=== PATIENT | female | born 1945 | race Caucasian/White ===

== ENCOUNTER 2017-10-11 14:58 | Emergency (ER) | payer MEDICARE ==
[2017-10-11] MEDS ORDERED: ONDANSETRON 4 MG/2 ML VIAL IVP STA (15:17)
[2017-10-11] MEDS ORDERED: SODIUM CHLORIDE 0.9% 1,000 ML IV STA (15:17)
[2017-10-11] MEDS ORDERED: DIPHENOX-ATROP 2.5-0.025 MG 1 EACH TAB PO STA (15:17)
--- NOTE | 2017-10-11 15:34 | ED ---
General Adult HPI - General Chief complaint: Nausea/Vomiting/Diarrhea Stated complaint: Weakness Time Seen by Provider: 10/11/17 15:00 Source: patient, RN notes reviewed Mode of arrival: ambulatory Limitations: no limitations - History of Present Illness Initial comments: This is a 71-year-old female who presents emergency Department complaining of nausea vomiting and diarrhea for 3-4 days. Patient states she's having no pain and she thought her diarrhea was going to stop yesterday but it started up again this morning. Patient states she hasn't been eating or drinking because she's been so sick. Patient denies any fever or chills. Patient denies any chest pain palpitations difficulty breathing shortness of breath. Patient denies any abdominal pain or cramping. Patient denies any dysuria hematuria urinary frequency. Patient denies any recent falls or injuries. Patient denies headache patient denies numbness weakness. Patient does complain of generalized weakness but she believes that's secondary to not eating or drinking - Related Data Home Medications Medication Instructions Recorded Confirmed Levothyroxine Sodium [Synthroid] 75 mcg PO DAILY 10/11/17 10/11/17 Lisinopril [Zestril] 10 mg PO DAILY 10/11/17 10/11/17 Simvastatin [Zocor] 40 mg PO HS 10/11/17 10/11/17 Previous Rx's Medication Instructions Recorded Nitrofurantoin Monohyd/M-Cryst 100 mg PO Q12HR #14 cap 10/11/17 [Macrobid] Allergies Allergy/AdvReac Type Severity Reaction Status Date / Time No Known Allergies Allergy Verified 10/11/17 15:35 Review of Systems ROS Statement: Those systems with pertinent positive or pertinent negative responses have been documented in the HPI. ROS Other: All systems not noted in ROS Statement are negative. Past Medical History Past Medical History: Hyperlipidemia, Hypertension, Thyroid Disorder History of Any Multi-Drug Resistant Organisms: None Reported Past Surgical History: Hysterectomy Past Psychological History: No Psychological Hx Reported Smoking Status: Former smoker Past Alcohol Use History: None Reported Past Drug Use History: None Reported General Exam - General Exam Comments Initial Comments: GENERAL: Patient is well-developed and well-nourished. Patient is nontoxic and well- hydrated and is in mild distress. ENT: Neck is soft and supple. No significant lymphadenopathy is noted. Oropharynx is clear. Dry mucous membranes. Neck has full range of motion without eliciting any pain. EYES: The sclera were anicteric and conjunctiva were pink and moist. Extraocular movements were intact and pupils were equal round and reactive to light. Eyelids were unremarkable. PULMONARY: Unlabored respirations. Good breath sounds bilaterally. No audible rales rhonchi or wheezing was noted. CARDIOVASCULAR: There is a regular rate and rhythm without any murmurs gallops or rubs. ABDOMEN: Soft and nontender with normal bowel sounds. No palpable organomegaly was noted. There is no palpable pulsatile mass. SKIN: Skin is clear with no lesions or rashes and otherwise unremarkable. NEUROLOGIC: Patient is alert and oriented x3. Cranial nerves II through XII are grossly intact. Motor and sensory are also intact. Normal speech, volume and content. Symmetrical smile. MUSCULOSKELETAL: Normal extremities with adequate strength and full range of motion. LYMPHATICS: No significant lymphadenopathy is noted PSYCHIATRIC: Normal psychiatric evaluation. Normal interpersonal interactions appears functionally intact in deals appropriately with others. No signs of depression. No signs of anxiety. Limitations: no limitations Course Vital Signs 10/11/17 15:03 Temperature 98.4 F Pulse Rate 90 Respiratory 20 Rate Blood Pressure 139/73 O2 Sat by Pulse 98 Oximetry Medical Decision Making - Medical Decision Making I will back into reevaluate the patient she had no more vomiting while in the emergency department she stated she was feeling better and she was feeling good enough to go home. Patient also urinary tract infection I gave the patient [facility] emergency department. I will discharge the patient with some Zofran and Lomotil and an antibiotic for the urinary tract infection - Lab Data Result diagrams: 10/11/17 15:32 10/11/17 15:32 Lab Results 10/11/17 10/11/17 10/11/17 Range/Units 15:32 15:32 15:32 WBC 5.7 (3.8-10.6) k/uL RBC 5.12 (3.80-5.40) m/uL Hgb 15.4 (11.4-16.0) gm/dL Hct 46.3 H (34.0-46.0) % MCV 90.4 (80.0-100.0) fL MCH 30.1 (25.0-35.0) pg MCHC 33.3 (31.0-37.0) g/dL RDW 13.2 (11.5-15.5) % Plt Count 198 (150-450) k/uL Neutrophils % 73 % Lymphocytes % 13 % Monocytes % 9 % Eosinophils % 0 % Basophils % 1 % Neutrophils # 4.2 (1.3-7.7) k/uL Lymphocytes # 0.7 L (1.0-4.8) k/uL Monocytes # 0.5 (0-1.0) k/uL Eosinophils # 0.0 (0-0.7) k/uL Basophils # 0.1 (0-0.2) k/uL Sodium 140 (137-145) mmol/L Potassium 4.4 (3.5-5.1) mmol/L Chloride 102 (98-107) mmol/L Carbon Dioxide 22 (22-30) mmol/L Anion Gap 16 mmol/L BUN 33 H (7-17) mg/dL Creatinine 1.00 (0.52-1.04) mg/dL Est GFR (MDRD) Af Amer >60 (>60 ml/min/1.73 sqM) Est GFR (MDRD) Non-Af 55 (>60 ml/min/1.73 sqM) Glucose 106 H (74-99) mg/dL Calcium 9.4 (8.4-10.2) mg/dL Total Bilirubin 0.5 (0.2-1.3) mg/dL AST 53 H (14-36) U/L ALT 45 (9-52) U/L Alkaline Phosphatase 93 (38-126) U/L Total Protein 7.5 (6.3-8.2) g/dL Albumin 4.4 (3.5-5.0) g/dL Urine Color Yellow Urine Appearance Turbid H (Clear) Urine pH 5.5 (5.0-8.0) Ur Specific Call 1.024 (1.001-1.035) Urine Protein 1+ H (Negative) Urine Glucose (UA) Negative (Negative) Urine Ketones 1+ H (Negative) Urine Blood Negative (Negative) Urine Nitrite Negative (Negative) Urine Bilirubin Negative (Negative) Urine Urobilinogen <2.0 (<2.0) mg/dL Ur Leukocyte Esterase Moderate H (Negative) Urine WBC 32 H (0-5) /hpf Ur Squamous Epith Cells 3 (0-4) /hpf Amorphous Sediment Rare H (None) /hpf Urine Bacteria Many H (None) /hpf Urine Mucus Many H (None) /hpf Disposition Clinical Impression: Gastroenteritis, Urinary tract infection Disposition: HOME SELF-CARE Condition: Good Instructions: Gastroenteritis (ED) Prescriptions: Nitrofurantoin Monohyd/M-Cryst [Macrobid] 100 mg PO Q12HR #14 cap Referrals: Ruben Maddox MD [Primary Care Provider] - 1-2 days Time of Disposition: 16:41
[2017-10-11 15:48] LABS: Amorphous Sediment,Urine Rare /hpf; Appearance,Urine Turbid (Clear); Bacteria,Urine Many /hpf; Bilirubin,Urine Negative (Negative); Blood,Urine Negative (Negative); Color,Urine Yellow; Glucose,Urine (UA) Negative (Negative); Ketones,Urine 1+ (Negative); Leukocyte Esterase,Urine Moderate (Negative); Mucus,Urine Many /hpf; PH, Urine 5.5 (5.0-8.0); Protein,Urine 1+ (Negative); Specific Gravity,Urine 1.024 (1.001-1.035); Squamous Epithelial Cell,Urine 3 /hpf (0-4); Urobilinogen,Urine <2.0 mg/dL (<2.0); WBC,Urine 32 /hpf (0-5)
[2017-10-11 15:53] LABS: Basophils # (A) 0.1 k/uL (0-0.2); Basophils % (A) 1 %; Eosinophils % (A) 0 %; HCT 46.3 % (34.0-46.0); HGB 15.4 gm/dL (11.4-16.0); Lymphocytes # (A) 0.7 k/uL (1.0-4.8); Lymphocytes % (A) 13 %; MCH 30.1 pg (25.0-35.0); MCHC 33.3 g/dL (31.0-37.0); MCV 90.4 fL (80.0-100.0); Mean Platelet Volume 7.4; Monocytes # (A) 0.5 k/uL (0-1.0); Monocytes % (A) 9 %; Neutrophils # (A) 4.2 k/uL (1.3-7.7); Neutrophils % (A) 73 %; Platelet Count 198 k/uL (150-450); RBC 5.12 m/uL (3.80-5.40); RDW 13.2 % (11.5-15.5); WBC 5.7 k/uL (3.8-10.6)
--- NOTE | 2017-10-11 15:54 | XR ---
EXAMINATION TYPE: XR chest 2V DATE OF EXAM: 10/11/2017 COMPARISON: NONE HISTORY: Chest pain per order. TECHNIQUE: Frontal and lateral views of the chest are obtained. FINDINGS: There is some chronic parenchymal change in the bases without suspicious focal air space o pacity, pleural effusion, or pneumothorax seen. Possible spiculated nodule right lower lobe noted on 2 views. The cardiac silhouette size is upper limits of normal. The osseous structures are intact. IMPRESSION: Chronic changes without acute pulmonary process. Advise CT follow-up to exclude right lo wer lobe nodule.
[2017-10-11 16:07] LABS: ALT 45 U/L (9-52); AST 53 U/L (14-36); Albumin 4.4 g/dL (3.5-5.0); Alkaline Phosphatase 93 U/L (38-126); Anion Gap 16 mmol/L; Blood Urea Nitrogen 33 mg/dL (7-17); Calcium 9.4 mg/dL (8.4-10.2); Carbon Dioxide 22 mmol/L (22-30); Chloride 102 mmol/L (98-107); Glucose 106 mg/dL (74-99); Potassium 4.4 mmol/L (3.5-5.1); Sodium 140 mmol/L (137-145); Total Bilirubin 0.5 mg/dL (0.2-1.3); Total Protein 7.5 g/dL (6.3-8.2)
[2017-10-11] MEDS ORDERED: cefTRIAXone IN SWFI 1,000 MG/10 ML SYRINGE IVP STA (16:39)
[2017-10-11] MEDS ORDERED: ONDANSETRON 4 MG ODT STARTER PACK 2 TAB BTL PO STA (16:41)
[2017-10-11] MEDS ORDERED: DIPHENOX-ATROP STARTER PACK 8 TAB BTL PO STA (16:41)
[2017-10-11 16:46] VITALS: BP 141/69; PULSE 79; RESP 18; TEMP 100.6
[2017-10-11] MEDS ORDERED: IBUPROFEN 600 MG TAB PO STA (16:47)
[2017-10-11] MEDS ORDERED: ACETAMINOPHEN TAB 500 MG TAB PO STA (16:48)
== END 2017-10-11 17:21 | disposition home or self-care (01) ==
LOC: EC 14:58
DX: K52.9 Noninfective gastroenteritis and colitis, unspecified (principal); N39.0 Urinary tract infection, site not specified; E78.5 Hyperlipidemia, unspecified; I10 Essential (primary) hypertension; E07.9 Disorder of thyroid, unspecified; Z87.891 Personal history of nicotine dependence; Z79.899 Other long term (current) drug therapy
CPT/HCPCS: 36415; 80053; 85025; 81001; 71046; 99285; 96374; 96375; 96361; J2405; J0696; S0119